=== PATIENT | female | born 1950 | race Caucasian/White ===

== ENCOUNTER 2020-12-03 12:22 | Emergency (ER) | payer MEDICARE, SELFPAY ==
[2020-12-03 12:45] VITALS: BP 131/68; PULSE 89; RESP 20; TEMP 36.6; O2SAT 98
--- NOTE | 2020-12-03 13:29 | ED.GENADULT ---
HPI - General Adult General Chief complaint: Upper Respiratory Infection Stated complaint: COVID Symptoms Time Seen by Provider: 12/03/20 13:05 Source: patient and RN notes reviewed Mode of arrival: ambulatory Limitations: no limitations History of Present Illness HPI narrative: Patient presents today with a 6-day history of nausea. She experienced vomiting for 2 days and her last episode was 4 days ago. She experienced diarrhea for 5 days and her last episode of diarrhea was a small episode last night. Initially she believed her symptoms were due to eating some greasy foods prior to symptoms beginning. No blood in the stool or tarry stool. Associated symptoms include headache which is intermittent and not currently present, body aches and fatigue. She has been drinking normally and urinating well. She has not been eating frequently as it has been causing her nausea, but this morning she was able to eat 2 eggs and some toast and has been able to keep it down. She has been taking Tylenol for her headache with some relief. Denies abdominal pain, chest pain, shortness of breath, fever. Patient is concerned that she may have Covid 19. MD complaint: Nausea, vomiting, diarrhea Related Data Home Medications Medication Instructions Recorded Confirmed lisinopril 20 mg PO DAILY 12/03/20 12/03/20 sertraline 100 mg PO BID 12/03/20 12/03/20 Allergies Allergy/AdvReac Type Severity Reaction Status Date / Time No Known Allergies Allergy Verified 12/03/20 12:37 Review of Systems Review of Systems: Narrative: CONSTITUTIONAL: Denies fever, chills, or sweats. + Body aches, fatigue EYES: Denies visual changes, redness, or discharge. ENT: Denies rhinorrhea, congestion, sore throat, or otalgia. CARDIOVASCULAR: Denies chest pain, palpitations, or edema. RESPIRATORY: Denies cough or dyspnea. GASTROINTESTINAL: Denies abdominal pain. +nausea, vomiting, or diarrhea. GENITOURINARY: Denies dysuria or hematuria. SKIN: Denies rash, itching, or wounds. MUSCULOSKELETAL: Denies back pain, joint pain, or myalgia. NEUROLOGIC: Denies numbness, tingling, or weakness. + Headache PSYCH: Denies depression or anxiety. FOR[facility]LY [facility] Past Medical History Medical History (Updated 12/03/20 @ 14:16 by Shauna Richey, JUNIOR RECRUITER, ) Hypertension Comments At time of signature, I have reviewed and agree with nursing past medical, surgical, social and family history unless otherwise noted. Please see nursing chart for further information. There is no relevant family history pertinent to the presenting complaint Exam Narrative: Exam Narrative: GENERAL: Well-appearing, well-nourished, and in no acute distress. HEAD: Normocephalic, atraumatic. EYES: EOMI. No redness or drainage. Conjunctivae normal. ENT: Mucous membranes pink and moist. NECK: Normal AROM. CHEST: No respiratory distress. Clear to auscultation. HEART: Regular rate and rhythm. No murmur appreciated. Normal peripheral pulses. ABDOMEN: Soft, nontender, nondistended, normal active bowel sounds. MUSCULOSKELETAL: No bony tenderness. EXTREMITIES: Normal range of motion. No edema. SKIN: Warm, dry, no rash. Capillary refill normal. Normal skin turgor. NEURO: No focal deficits. Alert and oriented x3. Gait steady. PSYCH: Normal affect. No signs of depression or anxiety. Course Vital Signs Vital signs: Vital Signs Temperature 97.9 F 12/03/20 12:45 Pulse Rate 89 12/03/20 12:45 Respiratory Rate 20 12/03/20 12:45 Blood Pressure 131/68 12/03/20 12:45 Pulse Oximetry 98 12/03/20 12:45 Temperature 97.9 F 12/03/20 12:45 Pulse Rate 89 12/03/20 12:45 Respiratory Rate 20 12/03/20 12:45 Blood Pressure 131/68 12/03/20 12:45 Pulse Oximetry 98 12/03/20 12:45 Reviewed. Pt has been instructed to follow up with her PCP regarding her elevated blood pressure today. Medical Decision Making Differential Diagnosis Differential Diagnosis: Gastroenteritis, COVID-19, enteritis, C.
== END 2020-12-03 13:40 | disposition home or self-care (01) ==
PROVIDERS: Emergency Provider Nurse Practitioner
DX: B34.9 Viral infection, unspecified (principal); Z20.822 Contact with and (suspected) exposure to COVID-19; I10 Essential (primary) hypertension
CPT/HCPCS: 87426; 99203; C9803; G0463